=== PATIENT | male | born 1950 | race Caucasian/White ===

== ENCOUNTER → 2019-02-18 | Outpatient (CLI) | payer OTHER ==
--- NOTE | 2019-02-18 15:11 | 2DMMODE ---
[facility] [place] [address] 2 D/M-MODE ECHOCARDIOGRAM Name: AMY ORR Room #: REG CL [facility]#: [id number] Admission: 02/18/19 Attend Phys: Sae Atkinson MD Discharge: Date of : 48 Report #: [id number] THIS REPORT FOR: //name// APPROVED REPORT Study performed: 02/18/2019 12:56:55 EXAM: Comprehensive 2D, Doppler, and color-flow Echocardiogram Patient Location: Out-Patient Status: routine BSA: 1.97 HR: 72 bpm BP: 130/84 mmHg Rhythm: NSR, Pacemaker Indications Ischemic heart disease. Hx: Bradycardia, pacemaker. 2D Dimensions RVDd: 37.00 mm IVSd: 13.70 (7-11mm) LVOT Diam: 22.67 (18-24mm) LVDd: 45.17 mm PWd: 10.96 (7-11mm) LVDs: 31.55 (25-40mm) Aortic Root: 38.81 mm Volumes Left Atrial Volume (Systole) Single Plane 4CH: 48.16 mL Single Plane 2CH: 49.80 mL LA ESV Index: 27.00 mL/m2 Aortic Valve AoV Peak Franco.: 1.41 m/s AO Peak Gr.: 8.00 mmHg LVOT Max P.31 mmHg LVOT Max V: 1.35 m/s REJI Vmax: 3.86 cm2 Mitral Valve E/A Ratio: 0.8 MV Decel. Time: 283.96 ms MV E Max Franco.: 0.56 m/s MV A Franco.: 0.72 m/s MV PHT: 82.35 ms IVRT: 89.[address] [facility] [address] [address] 2 D/M-MODE ECHOCARDIOGRAM Name: DOMINGAAMY CHATO Room #: REG [facility]#: [id number] Admission: 02/18/19 Attend Phys: Sae Atkinson MD Discharge: Date of : 48 Report #: [id number] Pulmonary Valve PV Peak Franco.: 0.83 m/s PV Peak Gr.: 2.78 mmHg Pulmonary Vein P Vein S: 0.56 m/s P Vein D: 0.29 m/s P Vein S/D Ratio: 1.93 Tricuspid Valve TR Peak Franco.: 2.70 m/s RAP Estimate: 5.00 mmHg TR Peak Gr.: 29.00 mmHg PA Pressure: 34.00 mmHg Left Ventricle The left ventricle is normal size. There is normal LV segmental wall motion. Mild basal septal hypertrophy is present. Left ventricular systolic function is normal. LVEF is 55-60%. Mild diastolic dysfunction is present (impaired relaxation pattern). Right Ventricle The right ventricle is normal size. The right ventricular systolic function is normal. Pacemaker lead is present in the right ventricle. Atria The left atrium size is normal. Atrial septum is aneurysm. The right atrium size is normal. Aortic Valve The aortic valve is normal in structure; mildly calcified. No aortic regurgitation is present. There is no aortic valvular stenosis. Mitral Valve The mitral valve is normal in structure. There is no mitral valve regurgitation noted. No evidence of mitral valve stenosis. Tricuspid Valve The tricuspid valve is normal in structure. Mild to moderate tricuspid regurgitation. Estimated PAP is 35mmHg. Pulmonic Valve The pulmonary valve is normal in structure. Trace pulmonic regurgitation. [employer] [address] [place] [address] 2 D/M-MODE ECHOCARDIOGRAM Name: AMY ORR Room #: REG [facility]#: [id number] Admission: 02/18/19 Attend Phys: Sae Atkinson MD Discharge: Date of : 48 Report #: [id number] Aortic root is mildly dilated at 3.9cm. Ascending aorta is not well visualized. IVC is normal in size and collapses >50% with inspiration. Pericardium There is no pericardial effusion. <Conclusion> The left ventricle is normal size. Left ventricular systolic function is normal. Mild diastolic dysfunction is present (impaired relaxation pattern). The right ventricle is normal size. Pacemaker lead is present in the right ventricle. The left atrium size is normal. The aortic valve is normal in structure; mildly calcified. There is no mitral valve regurgitation noted. Mild to moderate tricuspid regurgitation. Estimated PAP is 35mmHg. <ELECTRONICALLY SIGNED> By: Asher Richmond MD 02/18/191510 10 10 Ashre Richmond MD /INF
== END ==
LOC: CV 10:20
DX: I08.2 Rheumatic disorders of both aortic and tricuspid valves (principal); I25.9 Chronic ischemic heart disease, unspecified; Z95.0 Presence of cardiac pacemaker

== ENCOUNTER → 2019-04-21 | Outpatient (CLI) | payer OTHER ==
--- NOTE | 2019-04-21 19:50 | EKG ---
[address] [place] [address] ELECTROCARDIOGRAM REPORT Name: AMY ORR Room #: REG [id number]mission: 04/21/19 Attend Phys: [facility] - Clinic physician Discharge: Date of : 48 Report #: [id number] THIS REPORT FOR: //name// [facility] Test Date: 2019-04-21 Test Time: 13:31:00 Pat Name: AMY ORR Department: Room: Gender: Unit Assistant: Medardo MARCH : 1950 Requested By: JONNTAHAN unknown Order Number: [id number] MD: Larry Flowers Measurements Intervals [place] Rate: 65 P: -28 MD: 192 QRS: 62 QRSD: 158 T: 35 QT: 471 QTc: 490 Interpretive Statements Atrial-ventricular dual-paced complexes No further analysis attempted due to paced rhythm No previous ECG available for comparison Electronically Signed On 04-21-2019 19:50:06 [employer]IST by Larry Flowers [email or web address] <ELECTRONICALLY SIGNED> By: Larry Flowers MD, [facility] 04/21/19 1950 1331 1331 Larry Flowers MD, FACC /EPI
== END ==
LOC: CV 13:00
DX: I49.9 Cardiac arrhythmia, unspecified (principal)